=== PATIENT | female | born 1980 | race Two or more races ===

== ENCOUNTER 2016-05-10 11:52 | Emergency (ER) | payer OTHER ==
[2016-05-10] MEDS ORDERED: IBUPROFEN 600 MG TABLET ONE (13:11)
[2016-05-10] MEDS ORDERED: DEXAMETHASONE 4 MG TABLET ONE (13:11)
[2016-05-10] MEDS ORDERED: ACETAMINOPHEN 325 MG TABLET ONE (13:11)
== END 2016-05-10 14:24 | disposition home or self-care (01) ==
LOC: ED 11:52
DX: M54.5 Low back pain (principal)
CPT/HCPCS: 99283 ×2; 51798; A9270 ×3